=== PATIENT | female | born 1960 | race Caucasian/White ===

== ENCOUNTER → 2018-02-04 | Outpatient (REF) | payer OTHER | LOC: M LAB REF 21:49 | DX: J20.9 Acute bronchitis, unspecified (principal) ==

== ENCOUNTER → 2021-06-05 | Outpatient (CLI) | payer OTHER ==
[~2021-06-05] MED LIST: CALC1TAB60 PO; COQ-100C5 PO; COQ-200C PO; ESTR1DIS2 TD; FISH1000 PO; KRIL300C2 PO; MAGN250T22 PO; MAGN250T3 PO; OMEP-221 PO; PREV1CAP PO; PROBCAP14 PO; SUPETAB25 PO; SUPETAB44 PO; VITA100054 PO; biocleanse PO
== END ==
LOC: M LABSMTC 09:44
PROVIDERS: ATTEND Anesthesiology
DX: Z01.818 Encounter for other preprocedural examination (principal); Z11.52 Encounter for screening for COVID-19

== ENCOUNTER 2021-06-09 07:07 | Day surgery (SDC) | payer OTHER ==
[~2021-06-09] VITALS: Ht 162.6 cm; Wt 85.7 kg
[~2021-06-09 07:07] MED LIST changes: +LIDOCAINE 2% 100MG/5ML SDV (FOR ANES.) As Ordered ONE; +NS 1,000 ML IV ONE; -OMEP-221 PO; +OMEP40CA5 PO; +fentaNYL 100 MCG/2 ML INJECTION As Ordered ONE; +propofoL 200 MG/20 ML VIAL As Ordered ONE
[2021-06-09 08:41] VITALS: BP 128/78
== END 2021-06-09 08:46 | disposition home or self-care (01) ==
LOC: M OPP 07:07
PROVIDERS: ATTEND Internal Medicine Gastroenterology
DX: K31.89 Other diseases of stomach and duodenum (principal); K44.9 Diaphragmatic hernia without obstruction or gangrene; R12 Heartburn; Z79.818 Long term (current) use of other agents affecting estrogen receptors and estrogen levels; Z91.030 Bee allergy status
CPT/HCPCS: 43239; 88305; J3010